=== PATIENT | female | born 1975 | race Caucasian/White ===

== ENCOUNTER 2017-10-18 12:47 | Emergency (ER) | payer MEDICAID ==
[~2017-10-18] VITALS: Ht 149.9 cm; Wt 59.0 kg
[2017-10-18 12:53] VITALS: Ht 149.9 cm; Wt 59.0 kg
[2017-10-18 14:51] VITALS: BP 117/75
== END 2017-10-18 14:51 | disposition home or self-care (01) ==
LOC: ED 12:47
DX: S56.811A Strain of other muscles, fascia and tendons at forearm level, right arm, initial encounter (principal); S20.212A Contusion of left front wall of thorax, initial encounter; W18.39XA Other fall on same level, initial encounter; Y93.89 Activity, other specified; Y92.89 Other specified places as the place of occurrence of the external cause; Y99.8 Other external cause status